=== PATIENT | female | born 1955 | race Caucasian/White ===

== ENCOUNTER → 2022-05-05 10:10 | Outpatient (BNVA) | payer MEDICARE, SELFPAY | PROVIDERS: PCP Nurse Practitioner Family; Visit Provider Nurse Practitioner Family | DX: I10 Essential (primary) hypertension (principal); R53.83 Other fatigue; Z78.9 Other specified health status; Z12.39 Encounter for other screening for malignant neoplasm of breast; Z90.49 Acquired absence of other specified parts of digestive tract; Z00.00 Encounter for general adult medical examination without abnormal findings; M81.0 Age-related osteoporosis without current pathological fracture | CPT/HCPCS: 80053; 80061; 84443; 85025 ==

== ENCOUNTER 2022-05-18 10:36 | Outpatient (CLI) | payer MEDICARE, SELFPAY ==
--- NOTE | 2022-05-18 10:54 | MM_ITS ---
WS: [id number] BILATERAL SCREENING DIGITAL TOMOSYNTHESIS MAMMOGRAM WITH CAD HISTORY: SCREENING COMPARISON: None available. Bilateral CC and MLO views with tomosynthesis and synthetic mammography submitted. Computer aided det ection analyzed. Breast composition: There are scattered areas of fibroglandular density. No suspicious masses, microc alcifications or architectural distortion. Benign calcifications in each breast. MM/[place] [id number] IMPRESSION: BI-RADS: 2-Benign FOLLOW UP: 1 Year Follow-up
--- NOTE | 2022-05-18 13:30 | XR_ITS ---
WS: [id number] DEXA (DUAL ENERGY X-RAY ABSORPTIOMETRY) Bone mineral density was performed using a Nitro PDF machine. HISTORY: M81.0 - Age-related osteoporosis without current pathology... COMPARISON: None available. Lumbar spine BMD (L1-L4): 0.976 g/cm2 T score: -1.7 Z score: -0.7 Total hip BMD: Left: 0.885 g/cm2. T score: -1.0 Z score: -0.2 Right: 0.904 g/cm2. T score: -0.8 Z score: 0.0 10 year probability of a major osteoporotic fracture is 16.2%. XR/XR DEXA axial skeleton* [id number] IMPRESSION: OSTEOPENIA based upon the WHO classification for females.
== END 2022-05-18 10:37 | disposition home or self-care (01) ==
LOC: RAD 10:41
PROVIDERS: PCP Nurse Practitioner Family; Visit Provider Nurse Practitioner Family
DX: M81.0 Age-related osteoporosis without current pathological fracture (principal); Z12.31 Encounter for screening mammogram for malignant neoplasm of breast
CPT/HCPCS: 77063; 77067; 77080

== ENCOUNTER → 2022-08-04 09:12 | Outpatient (BNVA) | payer MEDICARE, SELFPAY | PROVIDERS: PCP Nurse Practitioner Family; Visit Provider Nurse Practitioner Family | DX: E78.5 Hyperlipidemia, unspecified (principal) | CPT/HCPCS: 80061 ==

== ENCOUNTER 2022-11-26 10:06 | Emergency (ER) | payer MEDICARE, SELFPAY ==
[2022-11-26 10:46] VITALS: BP 106/61; PULSE 91; TEMP 37.3; O2SAT 100; BMI 30.7
[2022-11-26 11:04] LABS: Basophils # 0.1 10^3/uL (0.0-0.1); Basophils % 0.3 %; Eosinophils # 0.1 10^3/uL (0.0-0.8); Eosinophils % 0.4 %; Hematocrit 42.5 % (37.0-47.0); Hemoglobin 13.8 g/dL (11.5-15.3); Lymphocytes # 0.5 10^3/uL (0.8-4.8); Lymphocytes % 2.9 %; Mean Corpuscular HGB Conc 32.5 g/dL (30.0-36.0); Mean Corpuscular Hemoglobin 28.8 pg (28.0-34.0); Mean Corpuscular Volume 88.7 fl (81-99); Mean Platelet Volume 10.3 fL (7.4-10.4); Monocytes # 0.9 10^3/uL (0.2-0.9); Monocytes % 5.4 %; Neutrophils # 15.33 10^3/uL (1.8-7.7); Neutrophils % 90.6 %; Nucleated Red Blood Cells % 0 %; Platelet Count 279 10^3/cmm (130-400); Red Blood Count 4.79 10^6/uL (4.1-5.3); Red Cell Distribution Width 12.8 % (12.1-15.1); White Blood Count 16.9 10^3/uL (4.0-10.0)
[2022-11-26 11:23] LABS: Alanine Aminotransferase 13 U/L (0-33); Albumin Level 4.3 g/dL (3.5-5.2); Alkaline Phosphatase 69 U/L (35-105); Anion Gap 18.8 (5-19); Aspartate Amino Transferase 16 U/L (0-32); Blood Urea Nitrogen 11 mg/dL (8-23); Calcium 8.8 mg/dL (8.5-10.5); Carbon Dioxide 23 mmol/L (22-29); Chloride 97 mmol/L (98-107); Glomerular Filtration Rate 55.5 mL/min (90-130); Glucose 148 mg/dL (65-115); Lipase 19 U/L (13-60); Osmolality Calculated 282 mOsm/kg (285-295); Potassium 3.8 mmol/L (3.5-5.1); Sodium 135 mmol/L (136-145); Total Bilirubin 0.6 mg/dL (0.15-1.2); Total Protein 7.3 g/dL (6.6-8.7)
--- NOTE | 2022-11-26 11:40 | ED_ITS ---
HPI - Abdominal Pain General: Chief Complaint: Abdominal Pain Stated Complaint: N/V/D, right side pain Time Seen by Provider: 11/26/22 11:14 Source: patient Mode of arrival: ambulatory Limitations: no limitations History of Present Illness: Patient is a nice 67-year-old female presents to ED today with a complaint of right lower quadrant abdominal pain that she first noticed yesterday. She states pain came on fairly gradually. She states since then she has developed chills, subjective low-grade fevers, and body aches. She states today she began noticing some diarrhea. She does report some nausea and dry heaving yesterday evening as well. Upon arrival to the ED she states her belly pain has improved since onset and is currently rating it as minimal. She states she has a history of ovarian cysts MD elicited complaint: abdominal pain Pertinent past history: none Onset (ago): day(s) (yesterday) Pain Consistency: other (improving) Location: RLQ Severity: mild Radiation: none Migration to: no migration Exacerbating factors: nothing Relieving factors: nothing Associated Symptoms: Reports chills, diarrhea and nausea; Denies GI cramping, dysuria, fever(s), heartburn, hematochezia, melena, syncope and vomiting Related Data: Patient : No Review of Systems Const: Reports: chills and body aches; Denies: fever(s), fatigue or malaise Eyes: Denies: change in vision or blurry vision Card: Denies: chest pain, palpitations, irregular heart rhythm, lightheadedness, syncope or dyspnea on exertion Resp: Denies: dyspnea, productive cough or pain on inspiration GI: Reports: abdominal pain, nausea and diarrhea; Denies: vomiting, heartburn, GI cramping, rectal pain, rectal swelling, hematochezia or melena : Denies: flank pain, difficulty voiding, dysuria, urinary frequency, urinary urgency or urinary hesitancy Musc: Denies: neck pain, back pain, extremity pain, extremity swelling or joint pain Skin/Breast: Denies: rash Neuro: Denies: headache(s), numbness in extremities, weakness in extremities, sensory changes or dizziness PFSH ED PFSH: Medical History No pertinent past medical history Surgical History Hx of appendectomy Family History Mother CAD (coronary artery disease) Dementia Diabetes Hypertension Hyperlipidemia Grandfather Lung disease Denies family history of Chronic kidney disease (CKD) Cancer Stroke Social History Smoking and tobacco status: never smoked Alcohol intake: never Substance/Drug Use: never Adopted: No Lives independently: Yes Household members: spouse Housing: House Physical Exam Const: COMMON NORMALS: no acute distress, average body habitus, patient oriented x3, no limitations, alert and well nourished GENERAL APPEARANCE: cooperative ORIENTATION/CONSCIOUSNESS: Yes awake, Yes oriented to person, Yes oriented to place and Yes oriented to time HENMT: COMMON NORMALS: normocephalic and atraumatic HEAD & SCALP: normal to inspection, normocephalic and atraumatic Eye: COMMON NORMALS: no scleral icterus Neck/C-Spine: COMMON NORMALS: full ROM, no lymphadenopathy, supple and no meningeal signs Resp: COMMON NORMALS: normal respiratory effort and clear to auscultation bilaterally AUSCULTATION: clear to auscultation bilaterally Cardio: COMMON NORMALS: regular rate and regular rhythm RATE: regular rate RHYTHM: regular rhythm GI: COMMON NORMALS: Normal to inspection, nondistended, normoactive bowel sounds present, Soft to palpation, No hepatosplenomegaly present and no masses INSPECTION: Yes normal to inspection PALPATION: Yes Soft to palpation, Yes Tenderness to palpation present (GI) (minimal tenderness RLQ), No Guarding due to palpation present (GI), No Rigid due to palpation and Yes No hepatosplenomegaly present : COMMON NORMALS: Yes no CVA tenderness BLADDER/KIDNEY EXAM: Yes no CVA tenderness Back/Pelvis: COMMON NORMALS: no CVA tenderness, thoracic and lumbar spine normal to inspection and no thoracic nor lumbar tenderness Extremity: COMMON NORMALS: normal to inspection GENERAL: Yes normal exam except as noted Neuro: WILBERTO COMA SCALE: document GCS findings Wilberto coma scale eye ope gretta: Spontaneous Wilberto coma scale verbal response: Orientated [place] coma scale motor response: Obey commands Wilberto coma scale total score: 15 COMMON NORMALS: patient oriented x3 SENSORIUM/ORIENTATION: Yes alert, Yes oriented to person, Yes oriented to place and Yes oriented to time MENINGEAL SIGNS: Yes no meningeal signs Skin: COMMON NORMALS: no rashes or lesions noted GENERAL SKIN EXAM: no rashes or lesions noted Course Vital Signs: Vital signs: Vital Signs Temperature 99.1 F 11/26/22 10:46 Pulse Rate 91 11/26/22 10:46 Blood Pressure 106/61 11/26/22 10:46 Pulse Oximetry 100 11/26/22 10:46 Oxygen Delivery Me thod Room Air 11/26/22 10:46 MDM - Abdominal Pain Medical Decision Making Patient here with abdominal pain, nausea, body aches, low-grade fevers, diarrhea. Patient states her RLQ abdominal pain has slowly improved since onset and is currently rating pain is minimal. She has had previous appendectomy. Her initial/triage vital signs show mild hypotension with a BP of 106/61 however multiple subsequent pressures are normal. She has a low-grade temp of 99.1. She clinically appears in no acute distress. Blood work showing a white count of 16.9. The remainder of her labs are fairly unremarkable. Her UA does not appear grossly infected. Abdomen is nonsurgical. COVID is currently pending. I will call her with if this comes back positive. I think at this time patient is stable for discharge with conservative treatment at home. Return ED precautions given. Lab Data 11/26/22 10:58 11/26/22 10:58 Labs/Radiology: Laboratory Results WBC 16.9 10^3/uL (4.0-10.0) H 11/26/22 10:58 RBC 4.79 10^6/uL (4.1-5.3) 11/26/22 10:58 Hgb 13.8 g/dL (11.5-15.3) 11/26/22 10:58 Hct 42.5 % (37.0-47.0) 11/26/22 10:58 MCV 88.7 fl (81-99) 11/26/22 10:58 MCH 28.8 pg (28.0-34.0) 11/26/22 10:58 MCHC 32.5 g/dL (30.0-36.0) 11/26/22 10:58 RDW 12.8 % (12.1-15.1) 11/26/22 10:58 Plt Count 279 10^3/cmm (130-400) 11/26/22 10:58 MPV 10.3 fL (7.4-10.4) 11/26/22 10:58 Neut % (Auto) 90.6 % 11/26/22 10:58 Lymph % (Auto) 2.9 % 11/26/22 10:58 [place] % (Auto) 5.4 % 11/26/22 10:58 Eos % (Auto) 0.4 % 11/26/22 10:58 Baso % (Auto) 0.3 % 11/26/22 10:58 Neut # (Auto) 15.33 10^3/uL (1.8-7.7) H 11/26/22 10:58 Lymph # (Auto) 0.5 10^3/uL (0.8-4.8) L 11/26/22 10:58 [place] # (Auto) 0.9 10^3/uL (0.2-0.9) 11/26/22 10:58 Eos # (Auto) 0.1 10^3/uL (0.0-0.8) 11/26/22 10:58 Baso # (Auto) 0.1 10^3/uL (0.0-0.1) 11/26/22 10:58 Nucleated RBC % (auto) 0 % 11/26/22 10:58 Nucleated RBCs # 0.0 /100WBC 11/26/22 10:58 Sodium 135 mmol/L (136-145) L 11/26/22 10:58 Potassium 3.8 mmol/L (3.5-5.1) 11/26/22 10:58 Chloride 97 mmol/L (98-107) L 11/26/22 10:58 Carbon Dioxide 23 mmol/L (22-29) 11/26/22 10:58 Anion Gap 18.8 (5-19) 11/26/22 10:58 BUN 11 mg/dL (8-23) 11/26/22 10:58 Creatinine 1.0 mg/dL (0.5-0.9) H 11/26/22 10:58 GFR Calculation 55.5 mL/min (90-130) L 11/26/22 10:58 Glucose 148 mg/dL (65-115) H 11/26/22 10:58 Calculated Osmolality 282 mOsm/kg (285-295) L 11/26/22 10:58 Calcium 8.8 mg/dL (8.5-10.5) 11/26/22 10:58 Total Bilirubin 0.6 mg/dL (0.15-1.2) 11/26/22 10:58 AST 16 U/L (0-32) 11/26/22 10:58 ALT 13 U/L (0-33) 11/26/22 10:58 Alkaline Phosphatase 69 U/L (35-105) 11/26/22 10:58 Total Protein 7.3 g/dL (6.6-8.7) 11/26/22 10:58 Albumin 4.3 g/dL (3.5-5.2) 11/26/22 10:58 Globulin 3.0 g/dL (1.3-4.6) 11/26/22 10:58 Lipase 19 U/L (13-60) 11/26/22 10:58 Urine Color Yellow (Yellow) 11/26/22 12:01 Urine Appearance Turbid (CLEAR) A 11/26/22 12:01 Urine pH 5 (5-7) 11/26/22 12:01 Ur Specific [place] 1.025 (1.005-1.030) 11/26/22 12:01 Urine Protein Trace (Negative) 11/26/22 12:01 Urine Glucose (UA) Norm (Normal) 11/26/22 12:01 Urine Ketones 1+ (Negative) H 11/26/22 12:01 Urine Blood Trace (Negative) H 11/26/22 12:01 Urine Nitrate Negative (Negative) 11/26/22 12:01 Urine Bilirubin Neg (Negative) 11/26/22 12:01 Urine Urobilinogen Norm mg/dL (Negative) 11/26/22 12:01 Ur Leukocyte Esterase Negative (Negative) 11/26/22 12:01 Urine RBC 0-4 /hpf (0-2) H 11/26/22 12:01 Urine WBC 0-4 /hpf (0-5) H 11/26/22 12:01 Ur Squamous Epith Cells 0-4 /hpf (0-5) H 11/26/22 12:01 Amorphous Sediment 4+ /hpf 11/26/22 12:01 Urine Bacteria 2+ /hpf (NONE) H 11/26/22 12:01 Urine Mucus 1+ /hpf 11/26/22 12:01 Discharge Plan Discharge Patient Disposition: Home Clinical Impression: Viral illness Abdominal pain Qualifiers: Abdominal location: right lower quadrant Qualified Code(s): R10.31 - Right lower quadrant pain Condition: Stable Prescriptions: No Action Advil 200 mg Tablet 600 mg PO Q6H PRN (Reason: Pain) Discharge Orders: Discharge ED (Routine); Ordered 11/26/22 Ordered By: Arti Yap Referrals: Jana Florentino FNP [Primary Care Provider] - Patient Instructions: Gastroenteritis (DC), Abdominal Pain (ED) Coding Level of Care Code ED [employer] Chemist for Niki Kim
[2022-11-26 12:35] LABS: Urine Appearance Turbid (CLEAR); Urine Color Yellow (Yellow)
[2022-11-26 12:36] LABS: Add Urine Culture? Yes; Add Urine Microscopic? YES; Amorphous Sediment Urine 4+ /hpf; Bacteria Urine 2+ /hpf; Bilirubin Urine Neg (Negative); Blood Urine Trace (Negative); Glucose Urine UA Norm (Normal); Ketones Urine 1+ (Negative); Leukocyte Esterase Urine Negative (Negative); Mucus Urine 1+ /hpf; Nitrate Urine Negative (Negative); Protein Urine Trace (Negative); RBC Urine 0-4 /hpf (0-2); Specific Gravity, Urine 1.025 (1.005-1.030); Squamous Epithelial Cell Urine 0-4 /hpf (0-5); Urobilinogen Urine Norm (Negative); WBC Urine 0-4 /hpf (0-5); pH Urine 5 (5-7)
[2022-11-26] MEDS: sodium chloride 0.9% 1,000 ML 999 ML IV (12:56)
[2022-11-26 13:23] LABS: SARS Covid-2 Antigen negative (Negative)
[2022-11-26 14:15] VITALS: BP 104/63; PULSE 86; RESP 18; TEMP 37.9; O2SAT 94
== END 2022-11-26 14:20 | disposition home or self-care (01) ==
PROVIDERS: Emergency Provider Physician Assistant; PCP Nurse Practitioner Family
DX: R10.31 Right lower quadrant pain (principal); B34.9 Viral infection, unspecified; Z20.822 Contact with and (suspected) exposure to COVID-19
CPT/HCPCS: 36415; 80053; 81001; 83690; 85025; 87086; 87426; 99284; J7030